=== PATIENT | female | born 1950 | race Caucasian/White ===

== ENCOUNTER 2021-05-09 19:21 | Observation (INO) | payer MEDICARE, SELFPAY ==
[2021-05-09] VITALS (21 sets, daily range): BP systolic 74–126; BP diastolic 50–86; PULSE 65–87; RESP 13–21; TEMP 36.4; O2SAT 93–100
--- NOTE | ~2021-05-09 | CT_ITS ---
EXAMINATION: CT abdomen pelvis wo con DATE: 05/09/2021 22:59 INDICATION: Nausea and vomiting TECHNIQUE: Computed tomography (CT) of the abdomen and pelvis was performed without intravenous contr ast. Automated exposure control and iterative reconstruction technique were employed. The dose-length product was 479.90 mGy-cm. COMPARISON: None FINDINGS: Mild bibasilar atelectasis. Heart size is normal. Atherosclerotic coronary artery calcifications. Aor tic valve calcific lesion. Small pericardial effusion. Small sliding-type hiatal hernia. Cholecystect elizabeth clips the gallbladder fossa. Liver, spleen, pancreas and bilateral adrenal glands are normal. 2.3 cm cyst at the upper pole of the right kidney. Mild bilateral hydroureteronephrosis without urolithi asis or other evident obstructing lesion. No bowel obstruction. The appendix is not visualized. No pe ricecal inflammatory change to suggest acute appendicitis. Wall thickening of the colon beginning at the hepatic flexure and extending distally to the rectum consistent with colitis. No pneumatosis. The re are couple small diverticula along the sigmoid colon without adjacent inflammatory change to sugge st diverticulitis. Nonspecific mild bladder wall thickening. The uterus is not identified and has lik jay been surgically resected. No free intraperitoneal gas or fluid. No pathologically enlarged abdomi nal or pelvic lymphadenopathy. There is calcified atherosclerosis of the aorta and many of the other arteries. Moderate lumbar dextroscoliosis with severe spondylosis. IMPRESSION: 1. Diffuse wall thickening of the mid to distal colon consistent with colitis. 2. Mild bilateral hydroureteronephrosis without evident urolithiasis or obstructing lesions suggestin g bladder outlet obstruction which could also account for the mild wall thickening of the bladder. 3. Small sliding-type hiatal hernia. 4. Small pericardial effusion. Reviewed, dictated and finalized at location A. IMPRESSION: 1. Diffuse wall thickening of the mid to distal colon consistent with colitis. 2. Mild bilateral hydroureteronephrosis without evident urolithiasis or obstruc ting lesions suggesting bladder outlet obstruction which could also account for the mild wall thickening of the bladder. 3. Small sliding-type hiatal hernia. 4. Small pericardial effusion.
--- NOTE | 2021-05-09 19:41 | ECG_ITS ---
Measurements Intervals [place] Rate: 75 P: 25 MI: 174 QRS: -8 QRSD: 87 T: 28 QT: 408 QTc: 457 Interpretive Statements SINUS RHYTHM VENTRICULAR COUPLET POSSIBLE LEFT ATRIAL ENLARGEMENT LOW QRS VOLTAGE IN PRECORDIAL LEADS VOLTAGE CRITERI FOR LVH BASELINE ARTIFACT- II, V1, V3-V6 BORDERLINE ECG Electronically Signed On 05-10-2021 8:39:41 CDT by Wallace Brown D.O.
[2021-05-09] MEDS: SODIUM CHLORIDE 0.9% IV 1,000 ML 999 ML (19:46)
--- NOTE | 2021-05-09 19:51 | ED.RECABL ---
HPI - Recheck/Abnormal Lab/Rx General Chief Complaint: Recheck/Abnormal Lab/Rx Stated Complaint: Vomiting, Diarrhea, Low BP Time Seen by Provider: 05/09/21 19:25 History of Present Illness HPI narrative: 70 yo female presents from home for low blood pressure. After working in the yard she came inside and had multiple large, loose light colored stools. She then vomited a few times. She became very light headed and her daughter noted that she was extremely pale. She received 600 ml NS per EMS and BP on arrival was 74/50. She reports being in her normal state f health prior to onset of these symptoms. Related Data Home Medications Medication Instructions Recorded Confirmed metformin 1,000 mg PO BID 05/09/21 05/10/21 metoprolol succinate [Toprol XL] 25 mg PO DAILY 05/09/21 05/10/21 aspirin 81 mg PO DAILY 05/10/21 05/10/21 atorvastatin 40 mg PO DAILY 05/10/21 05/10/21 levothyroxine 88 mcg PO DAILY 05/10/21 05/10/21 liothyronine 5 mcg PO DAILY 05/10/21 05/10/21 lisinopril-hydrochlorothiazide 10 - 12.5 tablet PO DAILY 05/10/21 05/10/21 Allergies Allergy/AdvReac Type Severity Reaction Status Date / Time cholera vaccine Allergy Rash Verified 05/09/21 19:46 iohexol Allergy Anaphylaxis Verified 05/09/21 19:42 [From contrast - CT, X-RAY] morphine Allergy Itching Verified 05/09/21 19:42 Review of Systems Review of Systems: All systems reviewed & are unremarkable except as noted in HPI and below Constitutional: Constitutional: Denies chills, Denies fever(s) and Reports weakness Eyes: Eyes: Reports no additional eye complaints ENT: Reports dizziness Cardiovascular: Cardiovascular: Denies chest pain Respiratory: Respiratory: Denies dyspnea Gastrointestinal: Gastrointestinal: Denies abdominal pain, Reports diarrhea, Reports nausea and Reports vomiting Genitourinary: Genitourinary: Denies hematuria and Denies dysuria Musculoskeletal: Musculoskeletal: Denies back pain Neurologic: Reports dizziness, Denies syncope, Reports numbness (facial) and Reports weakness Hematologic/Lymphatic: Hematologic/Lymphatic: Denies easy bleeding and Denies easy bruising PMFSH Past Medical History Medical History (Updated 06/16/21 @ 14:45 by Demarco Hines MD) CAD (coronary artery disease) Diabetes Social History Social History (Updated 05/09/21 @ 21:42 by Demarco Hines MD) Smoking status: Never smoker Alcohol intake: former Substance use: never Gender identity (if verbalized by the patient): Female Spiritual care concerns: No Exam Const: General: alert, diaphoretic and ill appearing acutely Orientation/consciousness: patient oriented x3 HENMT: Head: normal to inspection Eyes: Pupils: Equal, round and reactive pupils present Neck: Neck: normal visual inspection Resp: Effort & Inspection: normal respiratory effort Auscultation: clear to auscultation bilaterally Cardio: Rate: regular rate Rhythm: regular rhythm GI: Inspection: non-distended GI Palp: Yes Soft to palpation and No Tenderness to palpation present (GI) Skin: General skin exam: pallor Rashes: no rashes Wounds: no wounds Neuro: General: patient oriented x3, moves all extremities and CN's II-XI intact bilaterally Speech: normal speech Extrem: General: normal to inspection and no edema Course Vital Signs Vital signs: Vital Signs Temperature 36.4 C 05/09/21 19:21 Pulse Rate 81 05/09/21 19:21 Respiratory Rate 18 05/09/21 19:21 Blood Pressure 74/50 L 05/09/21 19:21 Pulse Oximetry 95 05/09/21 19:21 Temperature 36.1 C L 05/10/21 14:00 Pulse Rate 70 05/10/21 14:00 Respiratory Rate 16 05/10/21 14:00 Blood Pressure 104/72 05/10/21 14:00 Pulse Oximetry 99 05/10/21 14:00 MDM - Recheck/Abnormal Lab/Rx Differential Diagnosis Differential diagnosis: Likely other (Sepsis, GI bleed, Vagal episode, other) Medical Records Attestation: I reviewed the patient's medical records. Lab Data Attestatio
[2021-05-09 20:24] LABS: Basophils Percent Auto 0.3 % (0.2-1.2); Eosinophils Absolute Auto 0.1 K/mm3 (0-0.3); Eosinophils Percent Auto 1.3 % (0-4.4); Hematocrit 34.6 % (37.0-47.0); Hemoglobin 11.1 g/dL (12.0-15.0); Immature Granulocyte Absolute 0.04 K/mm3 (0.00-0.031); Immature Granulocyte Percent A 0.4 % (0-0.5); Lymphocytes Absolute Auto 1.11 K/mm3 (0.9-3.2); Lymphocytes Percent Auto 11.6 % (18.3-44.2); Mean Corpuscular HGB Conc 32.1 g/dl (32-36); Mean Corpuscular Hemoglobin 30.7 pg (26-34); Mean Corpuscular Volume 95.8 fl (80-100); Monocytes Absolute Auto 0.6 K/mm3 (0.1-0.6); Monocytes Percent Auto 6.4 % (2.6-8.5); Neutrophils Absolute Auto 7.6 K/mm3 (1.3-6.7); Platelet Count Result 230 k/mm3 (150-375); Red Blood Count 3.61 M/mm3 (4.2-5.4); Red Cell Distribution Width 12.4 % (11.5-14.5); White Blood Count 9.5 K/mm3 (4.5-10.0)
[2021-05-09 20:36] LABS: Alanine Aminotransferase 22 U/L (4-35); Alkaline Phosphatase 37 U/L (38-126); Anion Gap 12 mmol/L (8-16); Aspartate Amino Transferase 29 U/L (14-36); Bilirubin,Total 0.4 mg/dL (0.2-1.3); Blood Urea Nitrogen 18 mg/dL (7-17); Calcium 9.6 mg/dL (8.4-10.2); Carbon Dioxide 23 mmol/L (22-30); Chloride 107 mmol/L (98-107); Estimated CRCL calculation 46 ml/min; Estimated Glomerular Filt Rate > 60; Glucose 133 mg/dL (65-105); Lipase 66 U/L (23-300); Potassium 3.7 mmol/L (3.4-5.0); Sodium 142 mmol/L (137-145)
[2021-05-09 20:39] LABS: Lactic Acid Reflex 3.4 mmol/L (0.7-2.1)
[2021-05-09 20:54] LABS: Add Urine Microscopic? NO; Appearance Urine Clear (Clear); Bilirubin Urine Negative (Negative); Blood Urine Negative (Negative); Color Urine Yellow (Yellow); Glucose Urine UA Negative (Negative); Ketones Urine Negative (Negative); Leukocyte Esterase Ur Negative LEU/UL (Negative); Nitrate Urine Negative (Negative); Protein Urine Negative (Negative); Urobilinogen Urine Negative mg/dL (<2.0)
[2021-05-09] MEDS: SODIUM CHLORIDE 0.9% IV 1,000 ML 999 ML IV CONT (21:00)
[2021-05-09] MEDS: DEXTROSE 5%/0.45% SOD CHL 1,000 ML 1000 ML IV CONT (21:43)
--- NOTE | 2021-05-09 22:23 | PC.NURSE ---
Patient had moderate sized bowel movement. Stool appeared to be mucoid and red. Patient does report hx of hemorrhoids. EDP Flora pearson.
--- NOTE | 2021-05-09 22:47 | PC.NURSE ---
Patient to radiology.
[2021-05-09 23:21] LABS: Reflex Lactic Acid Yes or No Add Lactic
[2021-05-09] MEDS: LACTATED RINGERS 1,000 ML 75 ML IV CONT (23:27)
[2021-05-10 00:34] VITALS: BMI 27.1
[2021-05-10 00:35] VITALS: BP 98/68; PULSE 71; RESP 18; TEMP 36.4; O2SAT 94
[2021-05-10 00:39] LABS: Hematocrit 31.6 % (37.0-47.0); Hemoglobin 10.3 g/dL (12.0-15.0)
--- NOTE | 2021-05-10 00:39 | ADMGEN ---
This patient, Elida Diggs, was admitted to [facility] Surg Room 314-01. Patient/family oriented to hospital policies and general routines including ID bracelet, bed and alarms, visiting hours, pain management, procedures, bathroom and other care routines, personal items, smoking policy, room service/diet, and visiting hours. Information on how to activate the Rapid Response Team has been discussed. Patient/Family are encouraged to report perceived risks to care and to ask questions if they do not understand what they are told or what they should do.
[2021-05-10 00:51] LABS: Lactic Acid 2.3 mmol/L (0.7-2.1)
[2021-05-10 04:00] VITALS: PULSE 78
--- NOTE | 2021-05-10 04:13 | PM.IMHP ---
H&P: HPI History of Present Illness Date/Time: 05/10/21 04:13 Chief Complaint: Nausea vomiting diarrhea Narrative: This is a 70-year-old female with past medical history significant for type 2 diabetes mellitus on p.o. agents and diet controlled, hypertension, hypothyroidism. Patient has been in her usual state of health up until just at in the morning when she has several vomit preceded by nausea and several bowel movements soft. Patient denies any blood in the stools but tower CN there was some mucous christiano colored, she denies any fevers chills or rigors, no abdominal pain, no weight loss, she is current with colonoscopies and no findings, no weight loss no change in stool character patient has been using laxatives on and off due to constipation. She denies any melena, hemoptysis nor bright red blood per rectum. She has not been able to eat as well. CT of abdomen and pelvis was significant for colitis. Patient had given a blood transfusion just recently and a CBC is significant for hemoglobin of 10. Review of Systems Review of Systems: Narrative: Nausea vomiting and diarrhea Constitutional: Constitutional: Denies chills, Denies fatigue, Denies fever(s), Denies lethargy, Denies malaise and Denies weakness Eyes: Eyes: Denies change in vision ENT: Denies nasal congestion, Denies nasal discharge and Denies nasal obstruction Cardiovascular: Cardiovascular: Denies chest pain, Denies irregular heart rhythm, Denies leg ulcers, Denies radiating jaw, neck or arm pain, Denies palpitations, Denies dyspnea and Denies orthopnea Respiratory: Respiratory: Denies cough, Denies dyspnea and Denies dyspnea on exertion Gastrointestinal: Gastrointestinal: Denies change in stool character, Denies dyspepsia, Reports diarrhea, Reports nausea and Reports vomiting Genitourinary: Genitourinary: Denies dysuria Musculoskeletal: Musculoskeletal: Denies arthralgias, Denies joint swelling and Denies muscle weakness Integumentary/Breasts: Skin/Breast: Denies rash Neurologic: Denies focal weakness and Denies Sensory deficit (Neuro) Psychiatric: Psychiatric: Reports no additional psychiatric complaints Endocrine: Endocrine: Reports no additional endocrine complaints Hematologic/Lymphatic: Hematologic/Lymphatic: Reports no additional hematologic/lymphatic complaints Allergic/Immunologic: Allergic/Immunologic: Reports no additional allergic/immunologic complaints FORMERLY [facility], [facility] Past Medical History Medical History (Updated 05/10/21 @ 04:38 by Roberto Tsang MD) CAD (coronary artery disease) Diabetes Social History Social History (Updated 05/09/21 @ 21:42 by Demarco Hines MD) Smoking status: Never smoker Alcohol intake: former Substance use: never Gender identity (if verbalized by the patient): Female Spiritual care concerns: No Meds Home Medications and Allergies Home Medications Medication Instructions Recorded Confirmed Type metformin 1,000 mg PO BID 05/09/21 05/10/21 History metoprolol succinate [Toprol XL] 25 mg PO DAILY 05/09/21 05/10/21 History aspirin [Baby Aspirin] 81 mg PO DAILY 05/10/21 05/10/21 History atorvastatin 40 mg PO DAILY 05/10/21 05/10/21 History levothyroxine 88 mcg PO DAILY 05/10/21 05/10/21 History liothyronine 5 mcg PO DAILY 05/10/21 05/10/21 History lisinopril-hydrochlorothiazide 10 - 12.5 tablet PO DAILY 05/10/21 05/10/21 History Allergies Allergy/AdvReac Type Severity Reaction Status Date / Time cholera vaccine Allergy Rash Verified 05/09/21 19:46 iohexol Allergy Anaphylaxis Verified 05/09/21 19:42 [From contrast - CT, X-RAY] morphine Allergy Itching Verified 05/09/21 19:42 Vital Signs Vital Signs - 24 hr 05/09/21 19:21 05/09/21 19:39 05/09/21 19:41 Temperature 97.6 F Pulse Rate 81 65 67 Respiratory Rate 18 15 13 Blood Pressure 74/50 L 94/56 L Pulse Oximetry 95 93 95 05/09/21 19:45 05/09/21 20:40 05/09/21 20:41 Temperature Pulse Rate 73 72 67 Respiratory Rate 15
[2021-05-10 04:58] VITALS: BP 108/60; PULSE 80; RESP 16; TEMP 36.6; O2SAT 95
[2021-05-10] MEDS: metroNIDAZOLE 500 MG/ISO 100ML 500 MG/100 ML BAG 100 MG IVPB (05:34)
[2021-05-10 06:06] LABS: Hematocrit 29.4 % (37.0-47.0); Hemoglobin 9.5 g/dL (12.0-15.0)
[2021-05-10 08:00] VITALS: PULSE 65
[2021-05-10 09:57] LABS: Lactic Acid Reflex 2.1 mmol/L (0.7-2.1)
[2021-05-10 10:07] LABS: Anion Gap 9 mmol/L (8-16); Blood Urea Nitrogen 8 mg/dL (7-17); Calcium 8.7 mg/dL (8.4-10.2); Carbon Dioxide 26 mmol/L (22-30); Chloride 104 mmol/L (98-107); Estimated CRCL calculation 79 ml/min; Estimated Glomerular Filt Rate > 60; Glucose 160 mg/dL (65-105); Potassium 3.5 mmol/L (3.4-5.0); Sodium 139 mmol/L (137-145)
[2021-05-10 12:18] LABS: Glucose Point of Care 108 mg/dl (65-105)
[2021-05-10 12:39] LABS: Reflex Lactic Acid Yes or No Add Lactic
--- NOTE | 2021-05-10 13:33 | PM.DS ---
DS: Admitting Diagnosis Admitting Diagnosis Admitting Diagnosis: colitis DS: Discharge Diagnosis Discharge Diagnosis (1) Colitis: Code(s): K52.9 - Noninfective gastroenteritis and colitis, unspecified Status: Acute Assessment and Plan: Diffuse wall thickening of mid to distal colon evident on CT abdomen/pelvis consistent with colitis. she was started on IV Flagyl and Levaquin, however she did refuse Levaquin noting GI upset in the past. Will continue her on p.o. Flagyl to complete a 5 day course of antibiotics given profuse diarrhea with hypovolemia. Begin probiotic. (2) Nausea vomiting and diarrhea: Code(s): R11.2 - Nausea with vomiting, unspecified; R19.7 - Diarrhea, unspecified Status: Acute Assessment and Plan: Secondary to colitis as above with 3 episodes of watery diarrhea. Resolved. she was able to tolerate a low-fiber, low residue diet. Recommend following bland diet until symptoms have resolved entirely. Plan as above (3) Dehydration: Code(s): E86.0 - Dehydration Status: Acute Assessment and Plan: secondary to diarrhea and poor p.o. intake. She was rehydrated with IV fluids. She was tolerating p.o. fluid intake and adequate hydration encouraged. (4) Hypotension: Code(s): I95.9 - Hypotension, unspecified Status: Acute Assessment and Plan: Blood pressure was low at presentation at 74/50. Suspect secondary to hypovolemia given significant dehydration. Blood pressures improved with IV fluid rehydration. Lisinopril-hydrochlorothiazide was held. Encouraged monitoring of blood pressure at home and follow-up with PCP for medication regimen adjustment as needed. (5) Normochromic normocytic anemia: Code(s): D64.9 - Anemia, unspecified Status: Acute Assessment and Plan: Hemoglobin slightly decreased at presentation, though she had just donated blood on 05/08/2021. Slight decline in hemoglobin during stay, likely dilutional effect secondary to IV fluids. Vital signs were stable with no evidence of blood loss. (6) Type 2 diabetes mellitus: Code(s): E11.9 - Type 2 diabetes mellitus without complications Status: Acute Assessment and Plan: Reports last A1c was 6.4 in March 2021. Blood sugars managed with sliding scale insulin during stay and were generally well controlled. Continue home metformin (7) Hydroureteronephrosis: Code(s): N13.30 - Unspecified hydronephrosis Status: Acute Assessment and Plan: CT a/p showed mild bilateral hydroureteronephrosis without urolithiasis or obstructing lesions. Urinalysis with no concerns for infection, no blood. Discussed these findings with her. She would like to follow-up with her primary care provider and not pursue any further intervention at this time, which is appropriate given her stable renal function and lack of urinary symptoms. DS: Summary Hospital Course Reason for hospitalization: colitis Hospital Course: date of admission: 05/09/2021 date of discharge: 05/10/2021 Elida Diggs is a 70-year-old female with history of type 2 diabetes mellitus and coronary artery disease who presented to the emergency department on 05/09/2021 Due to concerns low blood pressure. she reports that she had several episodes of loose stools and emesis after eating tofu and veggies then working out in the yard. Upon presentation to the ED, her BP was low at 74/50 with additional vital signs stable, H&H slightly decreased, additional CBC and BMP unremarkable, lactic was elevated at 3.4, urinalysis with no concern for infection, and CT abdomen /pelvis showed diffuse wall thickening of the mid to distal colon consistent with colitis. She was admitted to the hospitalist service for further evaluation and management. Please see above for further details. She was adequately rehydrated. Her symptoms improved significantly as did her bl
[2021-05-10 14:00] VITALS: BP 104/72; PULSE 70; RESP 16; TEMP 36.1; O2SAT 99
== END 2021-05-10 14:20 | disposition home or self-care (01) ==
LOC: ANHED 20:19 → ANH3MEDSUR 23:42
PROVIDERS: Admitting Provider Internal Medicine; Emergency Provider Emergency Medicine; Visit Provider Physician Assistant
DX: K52.9 Noninfective gastroenteritis and colitis, unspecified (principal); E86.0 Dehydration; I95.9 Hypotension, unspecified; I10 Essential (primary) hypertension; I25.10 Atherosclerotic heart disease of native coronary artery without angina pectoris; D64.9 Anemia, unspecified; E11.9 Type 2 diabetes mellitus without complications; E03.9 Hypothyroidism, unspecified; K44.9 Diaphragmatic hernia without obstruction or gangrene; N13.30 Unspecified hydronephrosis
CPT/HCPCS: 36415; 74176; 80048; 80053; 81003; 82948; 83605; 83690; 85014; 85018; 85025; 93005; 96361; 96365; 99285; G0378; J7030; J7120

== ENCOUNTER 2023-08-08 08:53 | Emergency (ER) | payer MEDICARE, SELFPAY ==
--- NOTE | 2023-08-08 08:56 | ED.SKABFB ---
HPI - Skin/Abscess/Foreign Bdy General Chief complaint: Skin/Abscess/Foreign Body Stated complaint: Possible Shingles Time Seen by Provider: 08/08/23 09:28 Source: patient, RN notes reviewed and old records reviewed Mode of arrival: ambulatory Limitations: no limitations History of Present Illness HPI narrative: 73-year-old female presents to the [facility] with complaints of a rash to the right side of her neck. Patient states that she woke up yesterday morning after having a headache with this rash. Has been applying hydrocortisone cream. Reports it as burning and painful. Denies fevers, chest pain, abdominal pain. Onset (ago): day(s) (1) Related Data Home Medications Medication Instructions Recorded Confirmed metformin 1,000 mg tablet 1,000 mg PO BID 05/09/21 08/08/23 metoprolol succinate 25 mg 25 mg PO DAILY 05/09/21 08/08/23 tablet,extended release 24 hr (Toprol XL) aspirin 81 mg chewable tablet 81 mg PO DAILY 05/10/21 08/08/23 atorvastatin 40 mg tablet 40 mg PO DAILY 05/10/21 08/08/23 levothyroxine 88 mcg tablet 88 mcg PO DAILY 05/10/21 08/08/23 liothyronine 5 mcg tablet 5 mcg PO DAILY 05/10/21 08/08/23 lisinopril 10 10 - 12.5 tablet PO DAILY 05/10/21 08/08/23 mg-hydrochlorothiazide 12.5 mg tablet Allergies Allergy/AdvReac Type Severity Reaction Status Date / Time iohexol Allergy Severe Anaphylaxis Verified 08/08/23 09:08 [From contrast - CT, X-RAY] cholera vaccine AdvReac Mild Rash Verified 08/08/23 09:08 morphine AdvReac Mild Itching Verified 08/08/23 09:08 Review of Systems Review of Systems: All systems reviewed & are unremarkable except as noted in HPI and below Constitutional: Constitutional: Reports no additional constitutional complaints Eyes: Eyes: Reports no additional eye complaints ENT: Reports system reviewed and no additional complaints, except as documented Cardiovascular: Cardiovascular: Reports no additional cardiovascular complaints, Denies chest pain and Denies dyspnea Respiratory: Respiratory: Reports no additional respiratory complaints, Denies chest congestion, Denies cough and Denies dyspnea Gastrointestinal: Gastrointestinal: Reports no additional gastrointestinal complaints, Denies abdominal pain, Denies nausea and Denies vomiting Musculoskeletal: Musculoskeletal: Reports no additional musculoskeletal complaints Integumentary/Breasts: Skin/Breast: Reports as per HPI and Reports rash Neurologic: Reports system reviewed and no additional complaints, except as documented Psychiatric: Psychiatric: Reports no additional psychiatric complaints Allergic/Immunologic: Allergic/Immunologic: Reports no additional allergic/immunologic complaints PMFSH Past Medical History Medical History CAD (coronary artery disease) Diabetes Social History Social History Smoking status: Never smoker Alcohol intake: former Substance use: never Gender identity (if verbalized by the patient): Female Spiritual care concerns: No Comments At the time of my signature, I reviewed and agree with the nursing past medical, surgical, social, and family history. There is no relevant family history pertinent to the patient complaint. Exam Const: General: cooperative, healthy appearing, comfortable, no acute distress, well developed, alert and well nourished Nutritional Appearance: well nourished Orientation/consciousness: patient oriented x3 Limitations: no limitations HENMT: Head: normal to inspection Ears: hearing grossly normal bilaterally, external ears normal, TM's normal bilaterally, EAC's normal and mastoids normal Face/Nose/Sinus: Normal external nose present, Normal nares present, Normal nasal mucous membranes and turbinates present and normal facial exam Face and sinus: normal facial exam Mouth: Yes Normal oral and palatal mucosa present, Yes lip normal and Yes mo
[2023-08-08 09:15] VITALS: BP 127/74; PULSE 63; RESP 18; TEMP 36; O2SAT 99
== END 2023-08-08 09:42 | disposition home or self-care (01) ==
PROVIDERS: Emergency Provider Nurse Practitioner
DX: B02.9 Zoster without complications (principal); I25.10 Atherosclerotic heart disease of native coronary artery without angina pectoris; E11.9 Type 2 diabetes mellitus without complications; Z79.84 Long term (current) use of oral hypoglycemic drugs; Z79.82 Long term (current) use of aspirin
CPT/HCPCS: 99213; G0463